=== PATIENT | female | born 1995 | race Caucasian/White ===

== ENCOUNTER 2017-03-12 14:59 | Outpatient (CLI) | payer MEDICAID ==
[2017-03-12 15:51] VITALS: BP 93/56
--- NOTE | 2017-03-13 07:53 | Ultrasound Report ---
BIOPHYSICAL PROFILE: INDICATION: Decreased movement, ALETA. COMPARISON: None similar. TECHNIQUE: Transabdominal ultrasound with Doppler interrogation. 2 - breathing movements 2 - movements 2 - posture and tone 2 - Qualitative amniotic fluid volume 8 - TOTAL SCORE OF POSSIBLE 8 Heart Rate (bpm) 161
--- NOTE | 2017-03-13 07:54 | Ultrasound Report ---
OB LIMITED INDICATION: Decreased movement, ALETA. COMPARISON: None similar at this institution. TECHNIQUE: Transabdominal grayscale ultrasound with Doppler interrogation. Gestation: Stark Position: Cephalic Amniotic Fluid: WNL (7-24 cm) ALETA = 13.7 cm Heart Rate: 133 BPM
== END 2017-03-12 17:00 | disposition home or self-care (01) ==
LOC: TRG 14:59
PROVIDERS: ATTEND Obstetrics & Gynecology
DX: O36.8130 Decreased fetal movements, third trimester, not applicable or unspecified (principal); Z3A.38 38 weeks gestation of pregnancy
CPT/HCPCS: 59025; 76815; 76819